=== PATIENT | female | born 1965 | race Caucasian/White ===

== ENCOUNTER 2018-10-19 15:54 | Emergency (ER) | payer SELFPAY ==
[~2018-10-19] VITALS: Ht 162.6 cm; Wt 87.5 kg
[2018-10-19 15:58] VITALS: Ht 162.6 cm; Wt 87.5 kg
[2018-10-19 16:48] LABS: CALCIUM 8.8 mg/dL (8.5-10.1); CARBON DIOXIDE 28.8 mmol/L (21-32); CHLORIDE SERUM 107 mmol/L (98-107); CREATININE SERUM 0.9 mg/dL (0.6-1.0); GFR1 > 60 mL/min; GLUCOSE SERUM 99 mg/dL (74-106); POTASSIUM SERUM 4.3 mmol/L (3.5-5.1); SODIUM SERUM 143 mmol/L (136-145)
[2018-10-19 16:52] LABS: ALBUMIN 3.9 g/dL (3.4-5.0); ALKALINE PHOSPHATASE 114 U/L (46-116); ALT/SGPT 33 U/L (14-59); AST/SGOT 23 U/L (15-37); BASOPHIL % 0.6 % (0-2); BILIRUBIN TOTAL 0.32 mg/dL (0.20-1.00); PLATELET COUNT 181 x10^3mcL (130-400); TOTAL PROTEIN, SERUM 7.9 g/dL (6.4-8.2)
[2018-10-19 20:55] VITALS: BP 179/106
== END 2018-10-19 20:55 | disposition home or self-care (01) ==
LOC: ED 15:54
PROVIDERS: Emergency Medicine
DX: R10.13 Epigastric pain (principal); R07.89 Other chest pain; I10 Essential (primary) hypertension
CPT/HCPCS: 36415; Q9967